=== PATIENT | male | born 1990 | race Caucasian/White ===

== ENCOUNTER 2023-03-14 19:05 | Emergency (ER) | payer SELFPAY ==
[~2023-03-14] VITALS: Wt 108.9 kg
== END 2023-03-14 20:23 | disposition home or self-care (01) ==
LOC: ED 19:05
DX: S01.81XA Laceration without foreign body of other part of head, initial encounter (principal); W26.8XXA Contact with other sharp object(s), not elsewhere classified, initial encounter; Y93.89 Activity, other specified; Y92.89 Other specified places as the place of occurrence of the external cause; Y99.8 Other external cause status; Z88.0 Allergy status to penicillin